=== PATIENT | male | born 1965 | race Caucasian/White ===

== ENCOUNTER 2024-09-13 07:05 | Emergency (ER) | payer OTHER, SELFPAY ==
[2024-09-13] VITALS (17 sets, daily range): BP systolic 138–195; BP diastolic 74–108; PULSE 62–86; RESP 10–28; TEMP 36.5–37.1; O2SAT 93–99; BMI 36.3
[2024-09-13 08:55] LABS: Add Manual Diff / Slide Review NO; Hematocrit 50.9 % (41-53); Hemoglobin 17.4 g/dL (13.5-17.5); Lymphocytes Absolute Auto 2200 /uL (1100-4500); Mean Corpuscular HGB Conc 34.3 % (30-36); Mean Corpuscular Hemoglobin 31.8 PG (26-34); Mean Corpuscular Volume 92.9 fL (80-100); Platelet Count 193 X10^3/uL (150-400)
[2024-09-13 09:09] LABS: Alanine Aminotransferase 30 IU/L (<50); Albumin 4.2 g/dL (3.5-5.0); Albumin Globulin Ratio 1.4 (1.0-2.8); Alkaline Phosphatase 44 U/L (38-126); Blood Urea Nitrogen 28 mg/dL (9-20); Calcium 9.0 mg/dL (8.4-10.2); Carbon Dioxide 28 mmol/L (22-32); Chloride 103 mmol/L (98-107); Estimated Glomerular Filt Rate > 60 mL/min (>60); Globulin 3.1 g/dL (1.7-4.1); Glucose 144 mg/dL (70-99); HEMOLYSIS 38 (0-50); Potassium 3.4 mmol/L (3.4-5.1); Sodium 138 mmol/L (137-145); Total Protein 7.3 g/dL (6.3-8.2)
[2024-09-13 09:12] LABS: INR 0.9 (0.9-1.3); Prothrombin Time 10.4 SECONDS (9.4-12.5)
[2024-09-13 09:14] LABS: PTT Partial Thromboplastin Tim 27 SECONDS (25.1-36.5)
[2024-09-13 09:37] LABS: HCO3 ABG 23 mmol/L (23-27); Oxygen Saturation ABG 13 % (95-100); PCO2 ABG 126.7 mmHg (35-45); PO2 ABG 21 mmHg (80-100); TCO2 ABG 24 mmol/L (23-27)
--- NOTE | 2024-09-13 10:00 | PC.NURSE ---
Pt laying back in [facility]. Pt experiencing priapism. MD in room with pt. Assisted in evacuating blood from penis. Pt tolerating fair. MD administered lidocaine and pseudophedrine directly into penis.
--- NOTE | 2024-09-13 10:00 | PC.NURSE ---
Phenylephrine administered by Dr Gutierrez and Dr Clayton.
--- NOTE | 2024-09-13 11:15 | PC.NURSE ---
Dr Clayton in room with pt. Continued to irrigate and remove blood from penis, administered two additional dosed of pseudophedrine.
--- NOTE | 2024-09-13 12:58 | ED_ITS ---
HPI - Male Genitourinary General Chief complaint: Urogenital-Male Stated complaint: Non drug induced erection , not on erection drugs Time Seen by Provider: 09/13/24 07:52 Source: patient Mode of arrival: Ambulatory History of Present Illness HPI Narrative: Pleasant 59-year-old man who admits to a previous history of priapism many years ago which was treated in emergency department and is not since reoccurred until today. He states his erection began around 445 this morning. He states it is painful but not as painful as his previous episode. He denies any recent fever chills sweats dysuria testicular pain or swelling. He has no other concerns or complaints at this time. He does not use any medications or injections to obtain an erection. Related Data Allergies Allergy/AdvReac Type Severity Reaction Status Date / Time No Known Drug Allergies Allergy Verified 09/13/24 07:23 Patient History Social History Smoking Status: Current every day smoker Smoking Status: Current every day smoker tobacco type: cigarettes Alcohol type: beer Exam Initial Vital Signs Initial Vital Signs: Vital Signs Temperature 97.7 F 09/13/24 07:19 Pulse Rate 86 09/13/24 07:19 Respiratory Rate 19 09/13/24 07:19 Blood Pressure 195/108 09/13/24 07:19 Pulse Oximetry 93 09/13/24 07:19 Oxygen Delivery Method Room Air 09/13/24 07:19 Const General: in distress Eyes General: Yes appearance normal, both eyes and all related structures Resp Effort & Inspection: normal respiratory effort Auscultation: clear to auscultation bilaterally Cardio Rate: regular rate Rhythm: regular rhythm Heart Sounds: S1 normal and S2 normal GI Palpation: soft and No tender General: No CVA tenderness Penis: no ecchymosis, edematous and other (erection) Meatus: meatus normal Procedures Penile Procedure Indication: priapism management Sedation/Analgesia: none Local Anesthesia Used: lidocaine 1% without epi Amount of anesthesia used (mL): 10 Priapism Management: aspiration and phenylephrine injection Patient Tolerated Procedure: Well Additional Comments: I began the procedure on my own and aspirated as much as possible, irrigated, and had given 2 doses of phenylephrine when Dr. Barnett the urologist came to assist me with the procedure. Along with Dr. Barnett we gave it to additional doses of phenylephrine and were able to aspirate more blood and the erection resolved. Course Course Course Narrative: Patient did have priapism with ischemia. Ischemia was confirmed by blood gas aspirated from the cavernous. Patient had procedure with aspiration phenylephrine to reduce the priapism and this was successful. The procedure was assisted by Dr. Barnett the urologist who also agreed that the patient was fit for discharge after resolution of the priapism. The patient was given return instructions including worsening pain, another erection which will not go away, any signs of infection such as swelling, redness, drainage, warmth. He was also advised to follow up with his PCP as soon as possible. Orders Ordered: ED Orders 09/13/24 08:45 CBC Auto Diff [Complete Blood Count AUTO DIFF] Stat CMP [Comprehensive Metabolic Panel] Stat PTT Partial Thromboplastin Jitendra Stat Prothrombin Time INR Stat Phenylephrine HCl (Phenylephrine 10,000 Mcg/Ml Vial) 250 mcg IM NOW PRN PRN Reason: PRIAPISM Discontinued Medications Lidocaine HCl (Lidocaine 1% 20 Ml) 20 ml INJ INTRA-OP ONE Stop: 09/13/24 09:15 Phenylephrine HCl (Phenylephrine 10,000 Mcg/Ml Vial) 250 mcg IM NOW ONE Stop: 09/13/24 08:46 Vital Signs Vital signs: Vital Signs - 8 hr 09/13/24 07:19 09/13/24 09:05 09/13/24 09:59 Temperature 97.7 F 98.4 F Pulse Rate 86 78 69 Respiratory Rate 19 16 28 H Blood Pressure 195/108 190/85 H Pulse Oximetry 93 98 98 Oxygen Delivery Method Room Air Room Air 09/13/24 10:00 09/13/24 10:01 09/13/24 10:01 Temperature Pulse Rate 65 66 Respiratory Rate 17 18 Blood Pressure 148/89 H Pulse Oximetry 98 98 Oxygen Delivery Method 09/13/24 10:05 09/13/24 10:05 09/13/24 10:10 Temperature Pulse Rate 65 Respiratory Rate 16 Blood Pressure 149/91 H 155/96 H Pulse Oximetry 97 Oxygen Delivery Method Room Air 09/13/24 10:10 09/13/24 10:15 09/13/24 10:15 Temperature Pulse Rate 71 67 Respiratory Rate 20 14 Blood Pressure 167/98 H Pulse Oximetry 98 97 Oxygen Delivery Method 09/13/24 10:20 09/13/24 10:20 09/13/24 10:30 Temperature Pulse Rate 68 Respiratory Rate 20 Blood Pressure 156/91 H 151/79 H Pulse Oximetry 98 Oxygen Delivery Method 09/13/24 10:30 09/13/24 10:45 09/13/24 10:45 Temperature Pulse Rate 69 67 Respiratory Rate 20 21 Blood Pressure 153/82 H Pulse Oximetry 97 97 Oxygen Delivery Method 09/13/24 11:00 09/13/24 11:00 09/13/24 11:15 Temperature Pulse Rate 65 63 Respiratory Rate 10 L 16 Blood Pressure 150/84 H Pulse Oximetry 99 97 Oxygen Delivery Method 09/13/24 11:15 09/13/24 11:30 09/13/24 11:30 Temperature Pulse Rate 64 Respiratory Rate 16 Blood Pressure 165/95 H 162/90 H Pulse Oximetry 99 Oxygen Delivery Method 09/13/24 11:45 09/13/24 11:45 09/13/24 12:00 Temperature Pulse Rate 62 64 Respiratory Rate 18 22 Blood Pressure 163/92 H Pulse Oximetry 98 98 Oxygen Delivery Method Room Air 09/13/24 12:00 Temperature Pulse Rate Respiratory Rate Blood Pressure 138/74 Pulse Oximetry Oxygen Delivery Method MDM - Male Genitourinary Differential Diagnosis Differential diagnosis: Likely urinary tract infection, priapism, urethritis, epididymitis and acute retention of urine Lab Data 09/13/24 08:45 09/13/24 08:45 Labs: Lab Results 09/13/24 09/13/24 Range/Units 08:45 09:31 WBC 6.5 (4.5-11.0) X10^3/uL RBC 5.47 (4.5-5.9) X10^6/uL Hgb 17.4 (13.5-17.5) g/dL Hct 50.9 (41-53) % MCV 92.9 (80-100) fL MCH 31.8 (26-34) PG MCHC 34.3 (30-36) % RDW 14.4 (11.6-14.8) % Plt Count 193 (150-400) X10^3/uL Neut % (Auto) 50.2 (50-75) % Lymph % (Auto) 34.0 (25-40) % [place] % (Auto) 8.5 (3-14) % Eos % (Auto) 6.2 H (2-4) % Baso % (Auto) 1.1 (0-2) % Neut # (Auto) 3200 (5784-7261) /uL Lymph # (Auto) 2200 (6338-4324) /uL [place] # (Auto) 500 (0-900) /uL Eos # (Auto) 400 (0-450) /uL Baso # (Auto) 100 (0-100) /uL PT 10.4 (9.4-12.5) SECONDS INR 0.9 (0.9-1.3) APTT 27 (25.1-36.5) SECONDS ABG pH 6.86 L* (7.35-7.45) ABG pCO2 126.7 H* (35-45) mmHg ABG pO2 21 L* (80-100) mmHg ABG HCO3 23 (23-27) mmol/L ABG Total CO2 24 (23-27) mmol/L ABG O2 Saturation 13 L* (95-100) % ABG Base Excess -15.8 L (-2-3) mmol/L Jeff Test N/a Sodium 138 (137-145) mmol/L Potassium 3.4 (3.4-5.1) mmol/L Chloride 103 (98-107) mmol/L Carbon Dioxide 28 (22-32) mmol/L BUN 28 H (9-20) mg/dL Creatinine 1.14 (0.66-1.25) mg/dL Estimated GFR > 60 (>60) mL/min BUN/Creatinine Ratio 24.6 H (6-22) Glucose 144 H (70-99) mg/dL Calcium 9.0 (8.4-10.2) mg/dL Total Bilirubin 0.9 (0.2-1.3) mg/dL AST 31 (17-59) IU/L ALT 30 (<50) IU/L Alkaline Phosphatase 44 (38-126) U/L Total Protein 7.3 (6.3-8.2) g/dL Albumin 4.2 (3.5-5.0) g/dL Globulin 3.1 (1.7-4.1) g/dL Albumin/Globulin Ratio 1.4 (1.0-2.8) Discharge Plan Departure Patient Disposition: Home Clinical Impression: Priapism Instructions: DI for Priapism Activity Restrictions/Additional Instructions: If there is any change or worsening in her condition, especially if you develop another erection that is not going away on its own then please return to the ER right away for further evaluation. Otherwise, please follow-up with your primary care provider as soon as possible. Stand Alone Forms: Patient Portal/API
--- NOTE | 2024-09-13 18:04 | P.CONS_ITS ---
History of Present Illness Consult details Date Patient Seen: 09/13/24 Time Patient Seen: 09:30 Chief complaint: Non drug induced erection , not on erection drugs Reason for consult: Priapism Narrative: 59 y/o M presents to ER for evaluation of priapism of several hours duration. He admits to a prior episode roughly 7 years ago. He awoke this morning with an erection at 0445. He states it was painful, yet not as painful as it was previously. He otherwise does not currently utilize erectogenic medications or cocaine. Upon my presentation bedside, the ER provider, Dr. Jackson, had already began aspiration and irrigation with an 18G needle in each corpora cavernosa and had started injecting 250 micrograms of phenylephrine per mL into his corpora. Meds Home Medications and Allergies Allergies Allergy/AdvReac Type Severity Reaction Status Date / Time No Known Drug Allergies Allergy Verified 09/13/24 07:23 Review of Systems Review of Systems Narrative: CONSTITUTIONAL: Denies weight loss, fevers, chills. HEENT: Denies change in vision, hearing. RESP: Denies SOB, cough. CV: Denies palpations, CP. GI: Denies abdominal pain, nausea, vomiting, diarrhea. : Denies dysuria, hematuria, inability to void. MSK: Denies myalgia, joint pain. SKIN: Denies rash, pruritus. NEURO: Denies headache, syncope. PSYCH: Denies recent change in mood, anxiety, depression. Exam Vital Signs (past 8 hours): - 09/13/24 10:05 09/13/24 10:05 09/13/24 10:10 Temperature Pulse Rate 65 Respiratory Rate 16 Blood Pressure 149/91 H 155/96 H Pulse Oximetry 97 Oxygen Delivery Method Room Air 09/13/24 10:10 09/13/24 10:15 09/13/24 10:15 Temperature Pulse Rate 71 67 Respiratory Rate 20 14 Blood Pressure 167/98 H Pulse Oximetry 98 97 Oxygen Delivery Method 09/13/24 10:20 09/13/24 10:20 09/13/24 10:30 Temperature Pulse Rate 68 Respiratory Rate 20 Blood Pressure 156/91 H 151/79 H Pulse Oximetry 98 Oxygen Delivery Method 09/13/24 10:30 09/13/24 10:45 09/13/24 10:45 Temperature Pulse Rate 69 67 Respiratory Rate 20 21 Blood Pressure 153/82 H Pulse Oximetry 97 97 Oxygen Delivery Method 09/13/24 11:00 09/13/24 11:00 09/13/24 11:15 Temperature Pulse Rate 65 63 Respiratory Rate 10 L 16 Blood Pressure 150/84 H Pulse Oximetry 99 97 Oxygen Delivery Method 09/13/24 11:15 09/13/24 11:30 09/13/24 11:30 Temperature Pulse Rate 64 Respiratory Rate 16 Blood Pressure 165/95 H 162/90 H Pulse Oximetry 99 Oxygen Delivery Method 09/13/24 11:45 09/13/24 11:45 09/13/24 12:00 Temperature Pulse Rate 62 64 Respiratory Rate 18 22 Blood Pressure 163/92 H Pulse Oximetry 98 98 Oxygen Delivery Method Room Air 09/13/24 12:00 09/13/24 13:05 Temperature 98.7 F Pulse Rate 68 Respiratory Rate 19 Blood Pressure 138/74 145/78 H Pulse Oximetry 98 Oxygen Delivery Method Room Air Oxygen Delivery Method Room Air Narrative Exam Narrative: GEN: Alert and oriented X3. No acute distress. Well-nourished. EYES: PERRLA, EOMI. HENT: Moist mucus membranes, no scleral icterus, normal neck ROM. RESP: Unlabored breathing, equal rise and fall of chest bilaterally, no cyanosis appreciated. CV: No peripheral edema, unremarkable heart rate. ABD: Soft, non-tender, non-distended, no palpable masses. : Erect penis, no urethral discharge, no meatal stenosis. Moderate sized genital wart on left lateral aspect of shaft. An 18G needle was placed into bilateral corpora cavernosa, one was utilized for aspiration and irrigation of injectable saline and the other was utilized to administer a total of 2mL's of 250mcg/mL of phenylephrine. His erection was noted to subside with residual woodiness appreciated. EXT: No edema, clubbing or cyanosis. SKIN: No rashes or lesions. NEURO: No focal neurologic deficits, CN II-XII grossly intact. PSYCH: Cooperative, appropriate mood and affect. Objective Labs 09/13/24 08:45 09/13/24 08:45 Labs: Laboratory Results - last 24 hr 09/13/24 09/13/24 08:45 09:31 WBC 6.5 RBC 5.47 Hgb 17.4 Hct 50.9 MCV 92.9 MCH 31.8 MCHC 34.3 RDW 14.4 Plt Count 193 Neut % (Auto) 50.2 Lymph % (Auto) 34.0 [place] % (Auto) 8.5 Eos % (Auto) 6.2 H Baso % (Auto) 1.1 Neut # (Auto) 3200 Lymph # (Auto) 2200 [place] # (Auto) 500 Eos # (Auto) 400 Baso # (Auto) 100 PT 10.4 INR 0.9 APTT 27 ABG Sample Site Not Reportable ABG pH 6.86 L* ABG pCO2 126.7 H* ABG pO2 21 L* ABG HCO3 23 ABG Total CO2 24 ABG O2 Saturation 13 L* ABG Base Excess -15.8 L Jeff Test N/a Sodium 138 Potassium 3.4 Chloride 103 Carbon Dioxide 28 BUN 28 H Creatinine 1.14 Estimated GFR > 60 BUN/Creatinine Ratio 24.6 H Glucose 144 H Calcium 9.0 Total Bilirubin 0.9 AST 31 ALT 30 Alkaline Phosphatase 44 Total Protein 7.3 Albumin 4.2 Globulin 3.1 Albumin/Globulin Ratio 1.4 [facility] Tobacco & Substance Use Smoking Status: Current every day smoker Assessment & Plan Assessment and plan (1) Priapism: Status: Acute Plan: 59 y/o w/ h/o priapism noted to have an additional episode of priapism this morning. Following aspiration/irrigation and injection of phenylephrine, his erection was noted to subside and he was safe for discharge. He will follow-up in the Urology clinic as needed in the future. He was given strict return precautions. Time-Based Coding :: [TOTAL MINUTES] spent with patient and on the chart (including review of chart, obtaining history, exam, reviewing outside data, placing orders, documenting exam and treatment plan, and counseling patient) on [DATE]. PROFEE Charge Codes Inpatient or Observation consultation: 00533
== END 2024-09-13 13:07 | disposition home or self-care (01) ==
PROVIDERS: Emergency Provider Emergency Medicine
DX: N48.30 Priapism, unspecified (principal)
CPT/HCPCS: 36600; 54220; 54235; 80053; 82805; 85025; 85610; 85730; 99281; 99284